=== PATIENT | male | born 1935 | race Caucasian/White ===

== ENCOUNTER → 2020-01-08 13:54 | Outpatient (CLI) | payer MEDICARE, OTHER, SELFPAY ==
[2020-01-08 14:58] LABS: BUN Creatinine Ratio 18.6 (6-22); Blood Urea Nitrogen 19 mg/dL (9-20); Calcium 9.6 mg/dL (8.4-10.2); Carbon Dioxide 27 mmol/L (22-32); Chloride 98 mmol/L (98-107); Estimated Glomerular Filt Rate > 60.0 mL/min (>60); Glucose 175 mg/dL (80-110); HEMOLYSIS < 15 (0-50); Potassium 3.9 mmol/L (3.4-5.1); Sodium 134 mmol/L (137-145)
== END ==
PROVIDERS: Referring Provider Student in an Organized Health Care Education/Training Program; Visit Provider Student in an Organized Health Care Education/Training Program
DX: I72.4 Aneurysm of artery of lower extremity (principal); I72.3 Aneurysm of iliac artery; Z98.890 Other specified postprocedural states; Z86.79 Personal history of other diseases of the circulatory system; I71.9 Aortic aneurysm of unspecified site, without rupture
CPT/HCPCS: 36415; 80048

== ENCOUNTER → 2022-03-15 10:24 | Outpatient (CLI) | payer MEDICARE, OTHER, SELFPAY ==
--- NOTE | 2022-03-15 10:29 | DI.CT.S_ITS ---
PROCEDURE: CT ABDOMEN PELVIS W CON INDICATIONS: Generalized abdominal pain; Dementia TECHNIQUE: After the administration of oral and IV contrast, axial sections were acquired from the lung bases to the pubic symphysis. Coronal and sagittal reformats were performed. For radiation dose reduction, the following was used: automated exposure control, adjustment of mA and/or kV according to patient size. COMPARISON: [facility], MR, MR HEAD/BRAIN WO CON, 03/15/2022, 11:23. FINDINGS: Image quality: Excellent. Lung bases: Unremarkable. Heart: No significant findings. ABDOMEN: Liver: Diffuse fatty liver infiltration is noted. Simple appearing, nonenhancing liver cysts are seen. Gallbladder: The gallbladder demonstrates layering gallstones. Biliary ducts: Unremarkable. Pancreas: Unremarkable. Spleen: Unremarkable. Adrenal Glands: Unremarkable. Kidneys and Ureters: Unremarkable. Stomach and Bowel: Stomach, small bowel loops, and colon are unremarkable. Colonic diverticulosis is seen, without findings of active diverticulitis. Peritoneum: No abnormal intraperitoneal fluid. No free air. Ventral Wall: No hernia. Abdominal Nodes: No retroperitoneal or mesenteric adenopathy by size criteria. Vessels: There is a proximal abdominal aortic aneurysm seen measuring 5.1 cm AP. A patent distal abdominal aortic stent graft is seen, which continues into the common iliac arteries. 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 Generalized atherosclerotic calcification can be seen new line the IVC demonstrates normal caliber PELVIS: Pelvic Organs: Prostate clips are seen. Bladder: Unremarkable. Pelvic Nodes: No enlarged lymph nodes. Miscellaneous: Bilateral fat containing inguinal hernias are seen, right larger than left. Bones: Mild dextroconvex scoliotic curvature is seen. Age-appropriate bony degenerative changes are seen, particularly involving L3-L4 and L4-L5 IMPRESSION: There is a 5.1 cm proximal abdominal aortic aneurysm. Distal to the aneurysm, there is a patent abdominal bi-iliac stent. 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 Incidental note is made of: Fatty liver infiltration Nonenhancing liver cysts Gallstones Diverticulosis, without active diverticulitis Focal L3-L4 and L4-L5 degenerative change Dextroconvex scoliotic curvature Bilateral fat containing inguinal hernias Dictated by: Vishal Swift M.D. on 03/15/2022 at 11:53 Approved by: Vishal Swift M.D. on 03/15/2022 at 11:58
--- NOTE | 2022-03-15 11:25 | DI.MRI.S_ITS ---
PROCEDURE: MR HEAD/BRAIN WO CON INDICATIONS: Generalized abdominal pain; Dementia TECHNIQUE: Non-contrast sagittal FLAIR, axial T1 and FLAIR sequences of the brain were obtained. Patient could not tolerate further imaging secondary to claustrophobia. COMPARISON: CT, HEAD WITHOUT CONTRAST, 05/26/2014, 12:19. FINDINGS: Image quality: Excellent. CSF spaces: Ventricles appear symmetric in size and shape. Basal cisterns are patent. No extra-axial fluid collections. Brain: No intracranial bleeds or mass effects. There is cerebral volume loss for age. There are periventricular and deep white matter chronic small vessel ischemic changes. Brainstem appears normal. Diffusion-imaging was not performed. No chronic ischemic insults. Normal intravascular flow voids are present. Skull and face: Calvarial bone marrow is normal in signal. Orbits are normal. Sinuses: Sinuses and mastoids are clear. IMPRESSION: 1. Limited examination demonstrating volume loss and small vessel ischemic disease. No definite acute intracranial abnormality. Dictated by: Tomasa Horn M.D. on 03/16/2022 at 8:39 Approved by: Tomasa Horn M.D. on 03/16/2022 at 8:40
== END ==
PROVIDERS: PCP Internal Medicine; Referring Provider Internal Medicine; Visit Provider Internal Medicine
DX: I71.4 Abdominal aortic aneurysm, without rupture (principal); I72.3 Aneurysm of iliac artery; R10.84 Generalized abdominal pain; F03.90 Unspecified dementia, unspecified severity, without behavioral disturbance, psychotic disturbance, mood disturbance, and anxiety; K76.0 Fatty (change of) liver, not elsewhere classified; K76.89 Other specified diseases of liver; K80.20 Calculus of gallbladder without cholecystitis without obstruction; K57.90 Diverticulosis of intestine, part unspecified, without perforation or abscess without bleeding; M47.816 Spondylosis without myelopathy or radiculopathy, lumbar region; M41.9 Scoliosis, unspecified; K40.20 Bilateral inguinal hernia, without obstruction or gangrene, not specified as recurrent
CPT/HCPCS: 70551; 70553; 74177; Q9967